=== PATIENT | male | born 1945 | race Hispanic/Latino ===

== ENCOUNTER 2017-05-29 14:47 | Outpatient (CLI) | payer MEDICARE ==
--- NOTE | 2017-05-29 16:19 | XRay Report ---
XRAY BILATERAL KNEE THREE VIEWS EACH: 05/29/17 14:47:00 CLINICAL: Bilateral knee pain. FINDINGS: Right: Moderate osteopenia. No fracture or dislocation. Moderate lateral joint space narrowing with osteophytes. Mild medial joint space narrowing. Patellofemoral joint osteoarthritis with osteophytes. Suspect a small knee joint effusion. Vascular calcifications. Left: Moderate osteopenia. No fracture or dislocation. Moderate medial joint space narrowing with small osteophytes. The lateral joint space is normal with small osteophytes. Patellofemoral joint osteoarthritis with small osteophytes. Suspect a small knee joint effusion.Vascular calcifications. IMPRESSION: Bilateral osteoarthritis with greater involvement of the patellofemoral joint and the lateral joint space on the right and patellofemoral joint and medial joint space on the left.
== END 2017-05-29 14:48 | disposition home or self-care (01) ==
LOC: SPVIMAG 14:47
PROVIDERS: ATTEND Orthopaedic Surgery Sports Medicine
DX: M17.0 Bilateral primary osteoarthritis of knee (principal); M85.861 Other specified disorders of bone density and structure, right lower leg; M85.862 Other specified disorders of bone density and structure, left lower leg; I10 Essential (primary) hypertension; J44.9 Chronic obstructive pulmonary disease, unspecified; E78.00 Pure hypercholesterolemia, unspecified

== ENCOUNTER 2018-11-12 15:33 | Inpatient (IN) | payer MEDICARE ==
[2018-11-12 16:19] LABS: Basophils % (Auto) 0.5 % (0.0-1.8); Eosinophils % (Auto) 0.4 % (0.0-4.3); Hematocrit 24.6 % (35.5-45.6); Hemoglobin 8.3 gm/dl (11.8-15.2); Lymphocytes # (Auto) 0.4 K/mm3 (1.2-5.4); Lymphocytes % (Auto) 6.9 % (13.4-35.0); Mean Corpuscular HGB Conc 34 % (32-34); Mean Corpuscular Volume 100 fl (84-94); Monocytes # (Auto) 0.6 K/mm3 (0.0-0.8); Monocytes % (Auto) 9.4 % (0.0-7.3); Platelet Count 199 K/mm3 (140-440); Red Blood Count 2.46 M/mm3 (3.65-5.03); Red Cell Distribution Width 17.9 % (13.2-15.2)
--- NOTE | 2018-11-12 16:24 | Emergency Department Report ---
ED General Adult HPI - General Chief complaint: Arrhythmia/Palpitations Stated complaint: JULISSA/WEAKNESS Time Seen by Provider: 11/12/18 16:15 Source: patient, family Mode of arrival: Wheelchair Limitations: No Limitations - History of Present Illness Initial comments: Patient is a 73-year-old by the patient's emergency room with complaints of shortness of breath and weakness. Patient states she had a near-syncopal episode today. Patient states he was at his doctor's office and they found him to be in A. fib which is a new rhythm for him. Patient states his symptoms are better with rest and worse with exertion. Sent here for evaluation and admis micky. 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 -: Gradual Consistency: constant Improves with: rest Worsens with: movement Associated Symptoms: malaise, shortness of breath, weakness. denies: confusion, chest pain, cough, diaphoresis, fever/chills, headaches, loss of appetite, nausea/vomiting, rash, seizure, syncope - Related Data Home Medications Medication Instructions Recorded Confirmed Last Taken Ubidecarenone [Coq-10] 200 mg PO DAILY 01/08/15 11/12/18 Unknown ALBUTEROL Inhaler (OR & NICU) 2 puff IH Q6H PRN 11/12/18 11/12/18 Unknown [Proair] Atorvastatin [Lipitor] 80 mg PO QHS 11/12/18 11/12/18 Unknown Gabapentin [Neurontin] 300 mg PO DAILY 11/12/18 11/12/18 Unknown Losartan [Cozaar] 50 mg PO BID 11/12/18 11/12/18 Unknown Multivitamin Tab [Multiple Vitamin 1 each PO DAILY 11/12/18 11/12/18 Unknown TAB (Theragran)] [place]-3 Fatty Acids/Fish Oil [Fish 1,000 mg PO DAILY 11/12/18 11/12/18 Unknown Oil] Tiotropium [Spiriva] 18 mcg IH DAILY 11/12/18 11/12/18 Unknown dilTIAZem CD [Cardizem Cd] 180 mg PO DAILY 11/12/18 11/12/18 Unknown hydroCHLOROthiazide [Hctz] 12.5 mg PO QDAY 11/12/18 11/12/18 Unknown Allergies Allergy/AdvReac Type Severity Reaction Status Date / Time Sulfa (Sulfonamide Allergy Unknown Verified 01/08/15 10:53 Antibiotics) ED Review of Systems ROS: Stated complaint: JULISSA/WEAKNESS Other details as noted in HPI Constitutional: denies: chills, fever Eyes: denies: eye pain, eye discharge, vision change ENT: denies: ear pain, throat pain Respiratory: shortness of breath. denies: cough, wheezing Cardiovascular: denies: chest pain, palpitations Endocrine: no symptoms reported Gastrointestinal: melena. denies: abdominal pain, nausea, diarrhea Genitourinary: denies: urgency, dysuria Musculoskeletal: denies: back pain, joint swelling, arthralgia Skin: denies: rash, lesions Neurological: weakness. denies: headache, paresthesias Psychiatric: denies: anxiety, depression Hematological/Lymphatic: denies: easy bleeding, easy bruising ED Past Medical Hx - Past Medical History Previous Medical History?: Yes Hx Hypertension: Yes Hx CVA: Yes (TIA 2014) Hx GERD: Yes Hx Kidney Stones: Yes Hx Asthma: Yes Hx COPD: Yes Additional medical history: High cholesterol - Surgical History Past Surgical History?: Yes Hx Open Heart Surgery: Yes (4 bypasses) Hx Appendectomy: Yes Additional Surgical History: Hernia repair. XCataract correction - Family History Family history: no significant - Social History Smoking Status: Former Smoker Substance Use Type: Alcohol - Medications Home Medications: Home Medications Medication Instructions Recorded Confirmed Last Taken Type Ubidecarenone [Coq-10] 200 mg PO DAILY 01/08/15 11/12/18 Unknown History ALBUTEROL Inhaler (OR & NICU) 2 puff IH Q6H PRN 11/12/18 11/12/18 Unknown History [Proair] Atorvastatin [Lipitor] 80 mg PO QHS 11/12/18 11/12/18 Unknown History Gabapentin [Neurontin] 300 mg PO DAILY 11/12/18 11/12/18 Unknown History Losartan [Cozaar] 50 mg PO BID 11/12/18 11/12/18 Unknown History Multivitamin Tab [Multiple Vitamin 1 each PO DAILY 11/12/18 11/12/18 Unknown History TAB (Theragran)] [place]-3 Fatty Acids/Fish Oil [Fish 1,000 mg PO DAILY 11/12/18 11/12/18 Unknown History Oil] Tiotropium [Spiriva] 18 mcg IH DAILY 11/12/18 11/12/18 Unknown History dilTIAZem CD [Cardizem Cd] 180 mg PO DAILY 11/12/18 11/12/18 Unknown History hydroCHLOROthiazide [Hctz] 12.5 mg PO QDAY 11/12/18 11/12/18 Unknown History ED Physical Exam - General Limitations: No Limitations General appearance: alert, in no apparent distress - Head Head exam: Present: atraumatic, normocephalic - Eye Eye exam: Present: normal appearance, PERRL Pupils: Present: normal accommodation - ENT ENT exam: Present: mucous membranes moist - Neck Neck exam: Present: normal inspection - Respiratory Respiratory exam: Present: normal lung sounds bilaterally. Absent: respiratory distress - Cardiovascular Cardiovascular Exam: Present: regular rate, irregular rhythm. Absent: systolic murmur, diastolic murmur, rubs, gallop - GI/Abdominal GI/Abdominal exam: Present: soft, normal bowel sounds. Absent: distended, t enderness, guarding - Rectal Rectal exam: Present: deferred - Extremities Exam Extremities exam: Present: normal inspection - Back Exam Back exam: Present: normal inspection - Neurological Exam Neurological exam: Present: alert, oriented X3 - Psychiatric Psychiatric exam: Present: normal affect, normal mood - Skin Skin exam: Present: warm, dry, intact, normal color. Absent: rash ED Course Vital Signs 11/12/18 11/12/18 11/12/18 15:43 15:44 15:46 Temperature 99 F Pulse Rate 123 H 109 H 105 H Respiratory 16 17 14 Rate Blood Pressure 122/65 122/65 122/65 Blood Pressure 122/65 [Right] O2 Sat by Pulse Oximetry 11/12/18 11/12/18 11/12/18 16:00 16:15 16:18 Temperature Pulse Rate 110 H 101 H 109 H Respiratory 21 17 Rate Blood Pressure 122/65 Blood Pressure [Right] O2 Sat by Pulse Oximetry 11/12/18 11/12/18 11/12/18 16:30 16:45 17:00 Temperature Pulse Rate 96 H 107 H 101 H Respiratory 14 24 15 Rate Blood Pressure 117/62 117/62 116/58 Blood Pressure [Right] O2 Sat by Pulse Oximetry 11/12/18 11/12/18 11/12/18 17:15 17:31 17:45 Temperature Pulse Rate 91 H 106 H 88 Respiratory 16 13 12 Rate Blood Pressure 122/68 124/60 124/60 Blood Pressure [Right] O2 Sat by Pulse 96 Oximetry 11/12/18 11/12/18 11/12/18 18:01 18:15 18:30 Temperature Pulse Rate 85 90 80 Respiratory 13 12 13 Rate Blood Pressure 115/63 116/58 136/61 Blood Pressure [Right] O2 Sat by Pulse 95 98 Oximetry 11/12/18 11/12/18 11/12/18 18:45 19:00 19:15 Temperature Pulse Rate 89 83 86 Respiratory 10 L 10 L 11 L Rate Blood Pressure 136/61 126/57 126/57 Blood Pressure [Right] O2 Sat by Pulse 95 96 Oximetry 11/12/18 11/12/18 11/12/18 19:30 19:41 19:51 Temperature Pulse Rate 85 85 91 H Respiratory 10 L 11 L 12 Rate Blood Pressure 131/65 126/57 126/57 Blood Pressure [Right] O2 Sat by Pulse 98 95 Oximetry 11/12/18 11/12/18 11/12/18 20:01 20:11 20:21 Temperature Pulse Rate 89 86 90 Respiratory 12 12 13 Rate Blood Pressure 140/99 140/99 140/99 Blood Pressure [Right] O2 Sat by Pulse Oximetry 11/12/18 11/12/18 11/12/18 20:30 20:41 20:51 Temperature Pulse Rate 89 84 82 Respiratory 11 L 15 17 Rate Blood Pressure 131/62 131/62 131/62 Blood Pressure [Right] O2 Sat by Pulse Oximetry 11/12/18 11/12/18 11/12/18 21:01 21:11 21:21 Temperature Pulse Rate 83 89 75 Respiratory 12 14 12 Rate Blood Pressure 132/65 132/56 114/58 Blood Pressure [Right] O2 Sat by Pulse Oximetry 11/12/18 11/12/18 11/12/18 21:26 21:30 21:41 Temperature 98.3 F Pulse Rate 76 78 Respiratory 12 14 Rate Blood Pressure 132/65 131/60 Blood Pressure [Right] O2 Sat by Pulse 95 94 Oximetry 11/12/18 11/12/18 11/12/18 21:51 22:00 22:09 Temperature Pulse Rate 81 89 86 Respiratory 12 13 Rate Blood Pressure 127/69 130/52 130/52 Blood Pressure [Right] O2 Sat by Pulse Oximetry 11/12/18 11/12/18 11/12/18 22:15 22:30 22:45 Temperature Pulse Rate 82 79 69 Respiratory 13 12 10 L Rate Blood Pressure 130/52 123/54 123/54 Blood Pressure [Right] O2 Sat by Pulse Oximetry 11/12/18 11/12/18 11/12/18 23:01 23:21 23:31 Temperature Pulse Rate 66 118 H 126 H Respiratory 12 21 28 H Rate Blood Pressure 138/63 138/63 138/63 Blood Pressure [Right] O2 Sat by Pulse Oximetry 11/12/18 11/12/18 11/13/18 23:41 23:51 00:01 Temperature Pulse Rate 104 H 101 H 88 Respiratory 22 17 17 Rate Blood Pressure 138/63 138/63 138/63 Blood Pressure [Right] O2 Sat by Pulse Oximetry 11/13/18 11/13/18 00:11 00:21 Temperature Pulse Rate 84 85 Respiratory 11 L 14 Rate Blood Pressure 135/80 138/68 Blood Pressure [Right] O2 Sat by Pulse Oximetry - Reevaluation(s) Reevaluation #1: Initial evaluation done. 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 EKG shows a sinus tach with PVCs. 11/12/18 16:21 Discussed all results with patient. Patient will be admitted to the hospitalist service. Patient agrees to plan of care. 11/12/18 19:57 - Consultations Consultation #1: Cardiology paged 11/12/18 18:20 Discussed case with cardiology and cardiology recommends admission to the hospitalist group and they will see the patient in the morning. 11/12/18 18:42 Consultation #2: GI paged 11/12/18 18:32 Discussed case with LING Lei. Dr. Wallace recommends IV Protonix drip, nothing by mouth after midnight, 1 unit of blood, and admission to the hospital for a scope in the morning 11/12/18 18:56 Consultation #3: Hospitalist consulted for admission. Hospitalist to admit patient. Hospitalist to assume care patient. 11/12/18 19:46 ED Medical Decision Making - Lab Data Result diagrams: 11/12/18 16:00 11/12/18 16:00 - EKG Data -: EKG Interpreted by Me EKG shows normal: sinus rhythm, axis, intervals, QRS complexes, ST-T waves Rate: tachycardia - Radiology Data Radiology results: report reviewed, image reviewed PROCEDURE: XR CHEST 1V AP TECHNIQUE: Chest radiograph single view. HISTORY: sob COMPARISONS: None . FINDINGS: Heart: Normal. Mediastinum/Vessels: Normal. Lungs/Pleural space: Normal. Bony thorax: No acute osseous abnormality. Life support devices: None. Sternotomy wires noted IMPRESSION: No acute cardiopulmonary abnormality. - Medical Decision Making Patient is 73-year-old medications Amerge for shortness of breath and weakness and near-syncope. Patient also complains of melena for 1 week. Patient found to be anemic and new onset A. fib. Cardiology consultation and GI consultation. Recommendation is received from both specialist. Patient admitted to the hospitalist service - Differential Diagnosis melena. GI bleed. new A. fib. sob. Weakness. Critical Care Time: Yes Critical care attestation.: If time is entered above; I have spent that time in minutes in the direct care of this critically ill patient, excluding procedure time. Critical Care Time: 45 minutes ED Disposition Clinical Impression: New onset a-fib, SOB (shortness of breath), Weakness, Near syncope, Melena Anemia Qualifiers: Anemia type: other cause Qualified Code(s): D64.9 - Anemia, unspecified GI bleed Qualifiers: GI bleed type/associated pathology: anorectal hemorrhage Qualified Code(s): K62.5 - Hemorrhage of anus and rectum Disposition: OP ADMIT IP TO THIS HOSP Is pt being admited?: Yes Does the pt Need Aspirin: No Condition: Critical Time of Disposition: 19:55
[2018-11-12 17:13] LABS: Creatine Kinase MB 3.3 ng/mL (0.0-4.0)
[2018-11-12] MEDS ORDERED: DILAUDID IV ONE (17:37)
[2018-11-12] MEDS ORDERED: DILAUDID ONE (17:37)
--- NOTE | 2018-11-12 17:55 | XRay Report ---
PROCEDURE: XR CHEST 1V AP TECHNIQUE: Chest radiograph single view. HISTORY: sob COMPARISONS: None . FINDINGS: Heart: Normal. Mediastinum/Vessels: Normal. Lungs/Pleural space: Normal. Bony thorax: No acute osseous abnormality. Life support devices: None. Sternotomy wires noted IMPRESSION: No acute cardiopulmonary abnormality. This document is electronically signed by Eliseo Trinh MD., November 12 2018 05:53:53 PM ET
[2018-11-12] MEDS ORDERED: NACL 0.9% 500 ML 500 ML IV ONE (18:57)
--- NOTE | 2018-11-12 19:33 | History and Physical Report ---
History of Present Illness Chief complaint: My stool is real dark, and i just dont feel good at all. History of present illness: 73 YO Male with HTN, CVA, GERD, Asthma, Nephrolithiasis, COPD, HLD, CAD S/P CABG presents to ED for evaluation. Pt states that he has experienced generalized weakness over the past week with worsening symptoms over the same time frame. Pt also reports feeling as though he was going to "pass out". Pt also reports dark tarry stools daily over the past 1 week. Pt presents to a new PCP and was found to have new onset Atrial Fib. Pt reports that he has never been informed of having Atrial Fib. Pt transported to [facility] via private vehicle. Pt seen and evaluated in ED and found to have Atrial Fib as well as concomitant GI Bleed complicated by symptomatic blood loss anemia. Pt admitted to [facility] and initiated on GI bleed protocol, and treated with PRBC transfusion. Cardiology consulted in ED. Pt denies fever, chills, CP, Palpitations, NVD, Trauma, prolonged travel/immobility, individual/family history of DVT/PE/Bleeding/Blood Clotting Disorders, skin rash, hemoptysis, or known ill contacts. Prior admission on 01/08/15 reviewed. All listed medication reconciled at time of admission. Past History Past Medical History: CAD, COPD, GERD, hypertension, hyperlipidemia, stroke Past Surgical History: appendectomy, CABG, cataract removal, hernia repair Social history: , lives with family. denies: smoking, alcohol abuse, prescription drug abuse Family history: CAD, hypertension Medications and Allergies Allergies Allergy/AdvReac Type Severity Reaction Status Date / Time Sulfa (Sulfonamide Allergy Unknown Verified 01/08/15 10:53 Antibiotics) Home Medications Medication Instructions Recorded Confirmed Last Taken Type Ubidecarenone [Coq-10] 200 mg PO DAILY 01/08/15 11/12/18 Unknown History ALBUTEROL Inhaler (OR & NICU) 2 puff IH Q6H PRN 11/12/18 11/12/18 Unknown Histor y [Proair] Atorvastatin [Lipitor] 80 mg PO QHS 11/12/18 11/12/18 Unknown History Gabapentin [Neurontin] 300 mg PO DAILY 11/12/18 11/12/18 Unknown History Losartan [Cozaar] 50 mg PO BID 11/12/18 11/12/18 Unknown History Multivitamin Tab [Multiple Vitamin 1 each PO DAILY 11/12/18 11/12/18 Unknown History TAB (Theragran)] [place]-3 Fatty Acids/Fish Oil [Fish 1,000 mg PO DAILY 11/12/18 11/12/18 Unknown History Oil] Tiotropium [Spiriva] 18 mcg IH DAILY 11/12/18 11/12/18 Unknown History dilTIAZem CD [Cardizem Cd] 180 mg PO DAILY 11/12/18 11/12/18 Unknown History hydroCHLOROthiazide [Hctz] 12.5 mg PO QDAY 11/12/18 11/12/18 Unknown History Active Meds: Active Medications Pantoprazole Sodium 80 mg/ (Sodium Chloride) 100 mls @ 10 mls/hr IV DIRECT SHEA Review of Systems Constitutional: weakness, no weight loss, no weight gain, no fever, no chills Ears, nose, mouth and throat: no ear pain, no ear discharge, no tinnitis, no decreased hearing, no nose pain Cardiovascular: no orthopnea, no palpitations, no edema, no syncope Respiratory: no cough, no cough with sputum, no hemoptysis, no shortness of breath, no dyspnea on exertion Gastrointestinal: melena, no nausea, no vomiting, no constipation, no change in bowel habits, no hematemesis, no early satiety Genitourinary Male: no hematuria, no flank pain, no discharge, no urinary frequency, no urinary hesitancy Rectal: no pain, no incontinence Musculoskeletal: no neck pain, no shooting arm pain, no arm numbness/tingling, no low back pain, no shooting leg pain Neurological: no paralysis, no weakness, no numbness, no tingling, no seizures Psychiatric: no anxiety, no memory loss, no change in sleep habits, no sleep disturbances, no hypersomnia, no suicidal ideation, no disorientation, no hallucinations Endocrine: no cold intolerance, no heat intolerance, no polyphagia, no excessive thirst, no polydipsia, no polyuria, no nocturia Hematologic/Lymphatic: no easy bruising, no easy bleeding, no lymphadenopathy Allergic/Immunologic: no urticaria, no allergic rhinitis, no wheezing, no persistent infections Exam - Constitutional Vitals: Temp Pulse Resp BP Pulse Ox 99 F 86 11 L 126/57 96 11/12/18 15:44 11/12/18 19:15 11/12/18 19:15 11/12/18 19:15 11/12/18 19:00 General appearance: Present: mild distress - EENT Eyes: Present: PERRL (conjunctival pallor) ENT: hearing intact, clear oral mucosa - Neck Neck: Present: supple, normal ROM - Respiratory Respiratory effort: normal Respiratory: bilateral: CTA - Cardiovascular Rhythm: irregularly irregular Heart Sounds: Present: S1 & S2. Absent: rub, click - Extremities Extremities: pulses symmetrical, No edema Peripheral Pulses: within normal limits - Abdominal General gastrointestinal: Present: soft, non-tender, non-distended, normal bowel sounds Male genitourinary: Present: normal - Integumentary Integumentary: Present: clear, warm, dry - Musculoskeletal Musculoskeletal: gait normal, strength equal bilaterally - Psychiatric Psychiatric: appropriate mood/affect, intact judgment & insight - Neurologic Neurologic: CNII-XII intact, moves all extremities Results - Labs CBC & Chem 7: 11/12/18 16:00 11/12/18 16:00 Labs: Abnormal lab results 11/12/18 11/12/18 Range/Units 16:00 16:00 RBC 2.46 L (3.65-5.03) M/mm3 Hgb 8.3 L (11.8-15.2) gm/dl Hct 24.6 L (35.5-45.6) % MCV 100 H (84-94) fl MCH 34 H (28-32) pg RDW 17.9 H (13.2-15.2) % Lymph % (Auto) 6.9 L (13.4-35.0) % [place] % (Auto) 9.4 H (0.0-7.3) % Lymph # 0.4 L (1.2-5.4) K/mm3 Seg Neutrophils % 82.8 H (40.0-70.0) % Sodium 134 L (137-145) mmol/L Chloride 97.3 L (98-107) mmol/L BUN 22 H (9-20) mg/dL Glucose 129 H (75-100) mg/dL Assessment and Plan - Patient Problems (1) GI bleed Current Visit: Yes Status: Acute Qualifiers: GI bleed type/associated pathology: anorectal hemorrhage Qualified Code(s): K62.5 - Hemorrhage of anus and rectum Plan to address problem: GI consulted in ED, IV ppi therapy, serial cbc, PRBC transfusion. (2) New onset a-fib Current Visit: Yes Status: Acute Plan to address problem: Rate currently controlled, Continue cardizem, telemetry monitoring, cardiology consulted, hold anticoagulation at this time secondary to GI bleed, (3) CVA (cerebral vascular accident) Current Visit: Yes Status: Chronic Plan to address problem: Present On Admission. (4) COPD (chronic obstructive pulmonary disease) Current Visit: Yes Status: Chronic Plan to address problem: Present on Admission., supplemental oxygen, nebulizer therapy, supportive care. (5) Asthma Current Visit: Yes Status: Acute Qualifiers: Asthma severity: mild Asthma persistence: intermittent Plan to address problem: Nebulizer therapy, supportive care, avoid asthma triggers (6) HLD (hyperlipidemia) Current Visit: Yes Status: Acute Qualifiers: Hyperlipidemia type: mixed hyperlipidemia Qualified Code(s): E78.2 - Mixed hyperlipidemia Plan to address problem: statin therapy, low cholesterol diet, (7) CAD (coronary artery disease) Current Visit: Yes Status: Chronic Qualifiers: Associated angina: without angina Plan to address problem: risk factor reduction therapy, low cholesterol diet, statin therapy, (8) Anemia Current Visit: Yes Status: Acute Qualifiers: Anemia type: other cause Qualified Code(s): D64.9 - Anemia, unspecified Plan to address problem: Symptomatic Anemia: Secondary to Blood loss: PRBC transfusion, CBC, repeat CBC in AM. (9) HTN (hypertension) Current Visit: No Status: Chronic Qualifiers: Hypertension type: essential hypertension Qualified Code(s): I10 - Essential (primary) hypertension Plan to address problem: Monitor BP q shift, continue current therapy. (10) DVT prophylaxis Current Visit: No Status: Acute Plan to address problem: SCD to BLE while in bed.
[2018-11-12] MEDS ORDERED: SODIUM CHLORIDE FLUSH SYRINGE 10 ML IV PRN (19:35)
[2018-11-12] MEDS ORDERED: PROVENTIL IH PRN ×2 (19:35→20:56)
[2018-11-12] MEDS ORDERED: TYLENOL PO PRN (19:35)
[2018-11-12] MEDS ORDERED: ZOFRAN IV PRN (19:35)
[2018-11-12] MEDS: PROTONIX 80 MG in NACL 0.9% 100 ML IV SCH (19:43)
[2018-11-12] MEDS ORDERED: PROAIR IH PRN (20:31)
[2018-11-12] MEDS ORDERED: NACL 0.9% 500 ML 500 ML ONE (21:01)
[2018-11-12 21:30] LABS: INR 3.11 (0.87-1.13)
[2018-11-12] MEDS: COZAAR PO SCH (22:09)
[2018-11-12] MEDS ORDERED: COZAAR ONE (22:10)
[2018-11-12] MEDS: SODIUM CHLORIDE FLUSH SYRINGE 10 ML IV SCH (22:10)
[2018-11-13 05:23] LABS: Basophils % (Auto) 0.3 % (0.0-1.8); Eosinophils # (Auto) 0.1 K/mm3 (0.0-0.4); Eosinophils % (Auto) 1.3 % (0.0-4.3); Hematocrit 27.1 % (35.5-45.6); Hemoglobin 9.3 gm/dl (11.8-15.2); Lymphocytes # (Auto) 0.5 K/mm3 (1.2-5.4); Lymphocytes % (Auto) 8.3 % (13.4-35.0); Mean Corpuscular HGB Conc 34 % (32-34); Mean Corpuscular Volume 99 fl (84-94); Monocytes # (Auto) 0.7 K/mm3 (0.0-0.8); Monocytes % (Auto) 12.2 % (0.0-7.3); Platelet Count 182 K/mm3 (140-440); Red Blood Count 2.74 M/mm3 (3.65-5.03); Red Cell Distribution Width 17.7 % (13.2-15.2)
[2018-11-13 05:35] LABS: Alanine Aminotransferase 27 units/L (7-56); Albumin 3.3 g/dL (3.9-5); BUN/Creatinine Ratio 20; Blood Urea Nitrogen 20 mg/dL (9-20); Calcium 8.9 mg/dL (8.4-10.2); Hemolysis Index 12
[2018-11-13] MEDS ORDERED: UBIDECARENONE 200 MG PO SCH (10:00)
[2018-11-13] MEDS: SODIUM CHLORIDE FLUSH SYRINGE 10 ML IV SCH ×2 (10:00→22:06)
[2018-11-13] MEDS: CARDIZEM CD PO SCH ×2 (10:00→17:16)
[2018-11-13 10:12] LABS: INR 2.46 (0.87-1.13)
--- NOTE | 2018-11-13 10:35 | Progress Note ---
Assessment and Plan Assessment and plan: 73 YO Male with HTN, CVA, GERD, Asthma, Nephrolithiasis, COPD, HLD, CAD S/P CABG presents to ED for evaluation. Pt states that he has experienced generalized weakness over the past week with worsening symptoms over the same time frame. Pt also reports feeling as though he was going to "pass out". Pt also reports dark tarry stools daily over the past 1 week. Pt presents to a new PCP and was found to have new onset Atrial Fib. Pt reports that he has never been informed of having Atrial Fib. Pt denies fever, chills, CP, Palpitations, NVD, Trauma, prolonged travel/immobility, individual/family history of DVT/PE/Bleeding/Blood Clotting Disorders, skin rash, hemoptysis, or known ill contacts * Pt seen and evaluated in ED and found to have Atrial Fib as well as concomitant GI Bleed complicated by symptomatic blood loss anemia. * Pt admitted to [facility] and initiated on GI bleed protocol, and treated with PRBC transfusion. * Cardiology consulted in ED. . Prior admission on 01/08/15 reviewed. All listed medication reconciled at time of admission. (1) GI bleed Current Visit: Yes Status: Acute Qualifiers: GI bleed type/associated pathology: anorectal hemorrhage Qualified Code(s): K62.5 - Hemorrhage of anus and rectum Plan to address problem: GI consulted in ED plan for [place] in am, IV ppi therapy, serial cbc, PRBC transfusion. (2) New onset a-fib Current Visit: Yes Status: Acute Plan to address problem: Rate currently controlled, Continue cardizem, telemetry monitoring, cardiology consulted, hold anticoagulation at this time secondary to GI bleed, (3) CVA (cerebral vascular accident) Current Visit: Yes Status: Chronic Plan to address problem: Present On Admission. (4) COPD (chronic obstructive pulmonary disease) Current Visit: Yes Status: Chronic Plan to address problem: Present on Admission., supplemental oxygen, nebulizer therapy, supportive care. (5) Asthma Current Visit: Yes Status: Acute Qualifiers: Asthma severity: mild Asthma persistence: intermittent Plan to address problem: Nebulizer therapy, supportive care, avoid asthma triggers (6) HLD (hyperlipidemia) Current Visit: Yes Status: Acute Qualifiers: Hyperlipidemia type: mixed hyperlipidemia Qualified Code(s): E78.2 - Mixed hyperlipidemia Plan to address problem: statin therapy, low cholesterol diet, (7) CAD (coronary artery disease) Current Visit: Yes Status: Chronic Qualifiers: Associated angina: without angina Plan to address problem: risk factor reduction therapy, low cholesterol diet, statin therapy, (8) Anemia Current Visit: Yes Status: Acute Qualifiers: Anemia type: other cause Qualified Code(s): D64.9 - Anemia, unspecified Plan to address problem: Symptomatic Anemia: Secondary to Blood loss: PRBC transfusion, CBC, repeat CBC in AM. (9) HTN (hypertension) Current Visit: No Status: Chronic Qualifiers: Hypertension type: essential hypertension Qualified Code(s): I10 - Essential (primary) hypertension Plan to address problem: Monitor BP q shift, continue current therapy. (10) DVT prophylaxis Current Visit: No Status: Acute Plan to address problem: SCD to BLE while in bed. History Interval history: Patient seen and examined, resting comfortably. No new complaints Hospitalist Physical - Constitutional Vitals: Temp Pulse Resp BP Pulse Ox 98.4 F 91 H 12 128/68 95 11/13/18 03:26 11/13/18 10:00 11/13/18 05:01 11/13/18 05:01 11/13/18 10:00 General appearance: Present: mild distress, well-nourished - EENT Eyes: Present: PERRL, EOM intact ENT: hearing intact, clear oral mucosa - Neck Neck: Present: supple, normal ROM - Respiratory Respiratory: bilateral: CTA - Cardiovascular Rhythm: irregularly irregular Heart Sounds: Present: S1 & S2. Absent: systolic murmur - Extremities Extremities: no ischemia, pulses intact, pulses symmetrical, No edema, normal temperature, normal color, Full ROM Peripheral Pulses: within normal limits - Abdominal General gastrointestinal: deferred, non-tender, non-distended, normal bowel jacinto nds - Integumentary Integumentary: Present: clear, warm, dry - Psychiatric Psychiatric: appropriate mood/affect, intact judgment & insight, memory intact, cooperative - Neurologic Neurologic: CNII-XII intact, moves all extremities - Allied Health Allied health notes reviewed: nursing Results - Labs CBC & Chem 7: 11/14/18 04:40 11/13/18 05:03 Labs: Laboratory Last Values WBC 5.8 K/mm3 (4.5-11.0) 11/13/18 05:03 RBC 2.74 M/mm3 (3.65-5.03) L 11/13/18 05:03 Hgb 9.3 gm/dl (11.8-15.2) L 11/13/18 05:03 Hct 27.1 % (35.5-45.6) L 11/13/18 05:03 MCV 99 fl (84-94) H 11/13/18 05:03 MCH 34 pg (28-32) H 11/13/18 05:03 MCHC 34 % (32-34) 11/13/18 05:03 RDW 17.7 % (13.2-15.2) H 11/13/18 05:03 Plt Count 182 K/mm3 (140-440) 11/13/18 05:03 Lymph % (Auto) 8.3 % (13.4-35.0) L 11/13/18 05:03 [place] % (Auto) 12.2 % (0.0-7.3) H 11/13/18 05:03 Eos % (Auto) 1.3 % (0.0-4.3) 11/13/18 05:03 Baso % (Auto) 0.3 % (0.0-1.8) 11/13/18 05:03 Lymph # 0.5 K/mm3 (1.2-5.4) L 11/13/18 05:03 [place] # 0.7 K/mm3 (0.0-0.8) 11/13/18 05:03 Eos # 0.1 K/mm3 (0.0-0.4) 11/13/18 05:03 Baso # 0.0 K/mm3 (0.0-0.1) 11/13/18 05:03 Seg Neutrophils % 77.9 % (40.0-70.0) H 11/13/18 05:03 Seg Neutrophils # 4.5 K/mm3 (1.8-7.7) 11/13/18 05:03 PT 26.2 Sec. (12.2-14.9) H 11/13/18 09:30 INR 2.46 (0.87-1.13) H 11/13/18 09:30 Sodium 135 mmol/L (137-145) L 11/13/18 05:03 Potassium 4.1 mmol/L (3.6-5.0) 11/13/18 05:03 Chloride 98.9 mmol/L (98-107) 11/13/18 05:03 Carbon Dioxide 25 mmol/L (22-30) 11/13/18 05:03 15 mmol/L 11/13/18 05:03 BUN 20 mg/dL (9-20) 11/13/18 05:03 1.0 mg/dL (0.8-1.5) 11/13/18 05:03 Estimated GFR > 60 ml/min 11/13/18 05:03 20 % 11/13/18 05:03 Glucose 121 mg/dL (75-100) H 11/13/18 05:03 Calcium 8.9 mg/dL (8.4-10.2) 11/13/18 05:03 1.30 mg/dL (0.1-1.2) H 11/13/18 05:03 AST 35 units/L (5-40) 11/13/18 05:03 ALT 27 units/L (7-56) 11/13/18 05:03 64 units/L (35-129) 11/13/18 05:03 86 units/L (55-170) 11/12/18 Unknown CK-MB (CK-2) 3.3 ng/mL (0.0-4.0) 11/12/18 Unknown CK-MB (CK-2) Rel Index 3.8 (0-4) 11/12/18 Unknown < 0.010 ng/mL (0.00-0.029) 11/12/18 Unknown NT-Pro-B Natriuret Pep 143.0 pg/mL (0-900) 11/12/18 Unknown 5.3 g/dL (6.3-8.2) L 11/13/18 05:03 3.3 g/dL (3.9-5) L 11/13/18 05:03 1.7 % 11/13/18 05:03 Blood Type A POSITIVE 11/12/18 19:10 Antibody Screen Negative 11/12/18 19:10 Crossmatch See Detail 11/12/18 19:10 Active Medications - Current Medications Current Medications: Generic Name Dose Route Start Last Admin Trade Name Yi PRN Reason Stop Dose Admin Acetaminophen 650 mg 11/12/18 19:35 Tylenol PO Q4H PRN Pain MILD(1-3)/Fever >100.5/URBINA Albuterol 2.5 mg 11/12/18 20:56 Proventil IH Q6HRT PRN Shortness Of Breath Atorvastatin Calcium 80 mg 11/12/18 22:00 11/12/18 22:10 Lipitor PO 80 mg QHS SHEA Administration Diltiazem HCl 180 mg 11/13/18 10:00 Cardizem Cd PO DAILY SHEA Fish Oil 1,000 mg 11/13/18 10:00 Fish Oil PO DAILY SHEA Gabapentin 300 mg 11/13/18 10:00 Neurontin PO DAILY [facility] Hydrochlorothiazide 12.5 mg 11/13/18 10:00 Hctz PO QDAY SHEA Pantoprazole Sodium 80 mg/ 100 mls @ 10 mls/hr 11/12/18 19:30 11/12/18 19:43 Sodium Chloride IV 8 mg/hr DIRECT SHEA 10 mls/hr Administration 8 MG/HR Losartan Potassium 50 mg 11/12/18 22:00 11/12/18 22:09 Cozaar PO 50 mg BID SHEA Administration Multivitamins 1 each 11/13/18 10:00 Theragran Tab PO DAILY [facility] Ondansetron HCl 4 mg 11/12/18 19:35 Zofran IV Q8H PRN Nausea And Vomiting Sodium Chloride 10 ml 11/12/18 22:00 11/12/18 22:10 Sodium Chloride Flush Syringe 10 Ml IV 10 ml BID SHEA Administration Sodium Chloride 10 ml 11/12/18 19:35 Sodium Chloride Flush Syringe 10 Ml IV PRN PRN LINE FLUSH Tiotropium [place] 1 puff 11/13/18 10:00 Spiriva IH DAILY SHEA
--- NOTE | 2018-11-13 11:09 | Consultation ---
History of Present Illness Consult date: 11/13/18 Requesting physician: JEF BELCHER III Consult reason: atrial fibrillation History of present illness: The pt is a 73 YO male with a past medical history of CAD s/p CABG in 2008, CVA, COPD, HTN, HLP. He is followed in our office by Dr. Patterson. He presented to his PCP's office yesterday with c/o generalized weakness and black, tarry stools for the past 1 weeks. An ECG obtained in PCP's office showed AFib/AFlutter and thus pt was referred to ED for further eval/management. Pt denies any prior formal diagnosis of AFib or AFlutter, however, he states that he has had intermittent palpitations for years and has suspected that he had paroxysmal AFib for quite some time. Of note, pt was initiated on Coumadin in 2014 after suffering recurrent CVAs. BROOKE at that time revealed multiple calcified atherosclerotic plaque in the aortic root and descending aorta likely the source of recurrent/bilateral strokes per neurology. His INR on admission was 3.11, H/H 8.3/24.6. On evaluation, pt is noted to be in mostly SR with freq PACs with brief paroxysms of AFib CVR. Echo done 02/2018 showed EF 40-45%, LA mildly dilated, mild MR, mild TR. Card PET done 09/2016 was negative for ischemia, EF 52% at rest and 55% with s tress. Past History Past Medical History: CAD, COPD, GERD, hypertension, hyperlipidemia, stroke Past Surgical History: appendectomy, CABG, cataract removal, hernia repair Social history: , lives with family. denies: smoking, alcohol abuse, prescription drug abuse Family history: CAD, hypertension Medications and Allergies Allergies Allergy/AdvReac Type Severity Reaction Status Date / Time Sulfa (Sulfonamide Allergy Unknown Verified 01/08/15 10:53 Antibiotics) Home Medications Medication Instructions Recorded Confirmed Last Taken Type Ubidecarenone [Coq-10] 200 mg PO DAILY 01/08/15 11/12/18 Unknown History ALBUTEROL Inhaler (OR & NICU) 2 puff IH Q6H PRN 11/12/18 11/12/18 Unknown History [Proair] Atorvastatin [Lipitor] 80 mg PO QHS 11/12/18 11/12/18 Unknown History Gabapentin [Neurontin] 300 mg PO DAILY 11/12/18 11/12/18 Unknown History Losartan [Cozaar] 50 mg PO BID 11/12/18 11/12/18 Unknown History Multivitamin Tab [Multiple Vitamin 1 each PO DAILY 11/12/18 11/12/18 Unknown History TAB (Theragran)] [place]-3 Fatty Acids/Fish Oil [Fish 1,000 mg PO DAILY 11/12/18 11/12/18 Unknown History Oil] Tiotropium [Spiriva] 18 mcg IH DAILY 11/12/18 11/12/18 Unknown History dilTIAZem CD [Cardizem Cd] 180 mg PO DAILY 11/12/18 11/12/18 Unknown History hydroCHLOROthiazide [Hctz] 12.5 mg PO QDAY 11/12/18 11/12/18 Unknown History Active Meds: Active Medications Acetaminophen (Tylenol) 650 mg PO Q4H PRN PRN Reason: Pain MILD(1-3)/Fever >100.5/URBINA Albuterol (Proventil) 2.5 mg IH Q6HRT PRN PRN Reason: Shortness Of Breath Atorvastatin Calcium (Lipitor) 80 mg PO QHS [facility] Last Admin: 11/12/18 22:10 Dose: 80 mg Documented by: Diltiazem HCl (Cardizem Cd) 180 mg PO DAILY [facility] Fish Oil (Fish Oil) 1,000 mg PO DAILY [facility] Gabapentin (Neurontin) 300 mg PO DAILY [facility] Hydrochlorothiazide (Hctz) 12.5 mg PO QDAY [facility] Pantoprazole Sodium 80 mg/ (Sodium Chloride) 100 mls @ 10 mls/hr IV DIRECT [facility] Last Admin: 11/12/18 19:43 Dose: 8 mg/hr, 10 mls/hr Documented by: Losartan Potassium (Cozaar) 50 mg PO BID [facility] Last Admin: 11/12/18 22:09 Dose: 50 mg Documented by: Multivitamins (Theragran Tab) 1 each PO DAILY [facility] Ondansetron HCl (Zofran) 4 mg IV Q8H PRN PRN Reason: Nausea And Vomiting Sodium Chloride (Sodium Chloride Flush Syringe 10 Ml) 10 ml IV BID [facility] Last Admin: 11/12/18 22:10 Dose: 10 ml Documented by: Sodium Chloride (Sodium Chloride Flush Syringe 10 Ml) 10 ml IV PRN PRN PRN Reason: LINE FLUSH Tiotropium [place] (Spiriva) 1 puff IH DAILY [facility] Review of Systems Constitutional: weakness (generalized), no weight loss, no weight gain, no feve r, no chills, no sweats Ears, nose, mouth and throat: no ear pain, no nose pain, no sinus pressure, no sinus pain Cardiovascular: palpitations, shortness of breath (chronic), dyspnea on exertion (chronic), no chest pain, no orthopnea, no edema, no syncope, no lightheadedness, no leg edema Respiratory: shortness of breath (chronic), dyspnea on exertion (chronic), no cough, no congestion, no wheezing, no pain on inspiration Gastrointestinal: melena, no abdominal pain, no nausea, no vomiting, no co nstipation, no hematemesis, no coffee ground emesis, no BRBPR Genitourinary Male: no dysuria, no hematuria, no flank pain, no discharge, no urinary frequency, no urinary hesitancy Musculoskeletal: no neck stiffness, no neck pain, no shooting arm pain, no arm numbness/tingling, no low back pain, no shooting leg pain Integumentary: no rash, no pruritis, no redness, no sores, no wounds Neurological: weakness (generalized), no head injury, no paralysis, no parathesias, no numbness, no tingling, no seizures, no syncope Psychiatric: no anxiety Endocrine: no cold intolerance, no heat intolerance Hematologic/Lymphatic: no easy bruising, no easy bleeding Allergic/Immunologic: no urticaria Physical Examination Vital Signs Pulse Resp BP 123 H 16 122/65 11/12/18 15:43 11/12/18 15:43 11/12/18 15:43 General appearance: no acute distress HEENT: Positive: PERRL, Normocephaly, Mucus Membranes Moist Neck: Positive: neck supple, trachea midline Cardiac: Positive: irregularly irregular, S1/S2 Lungs: Positive: Decreased Breath Sounds Neuro: Positive: Grossly Intact Abdomen: Positive: Soft. Negative: Tender Skin: Negative: Rash, Wound Musculoskeletal: No Pain Extremities: Absent: edema Results 11/13/18 05:03 11/13/18 05:03 Cardiac Enzymes 11/12/18 11/13/18 Range/Units Unknown 05:03 AST 35 (5-40) units/L CK-MB (CK-2) 3.3 (0.0-4.0) ng/mL Coagulation 11/12/18 11/13/18 Range/Units 20:48 09:30 PT 31.5 H 26.2 H (12.2-14.9) Sec. INR 3.11 H 2.46 H (0.87-1.13) CBC 11/12/18 11/13/18 Range/Units 16:00 05:03 WBC 5.9 5.8 (4.5-11.0) K/mm3 RBC 2.46 L 2.74 L (3.65-5.03) M/mm3 Hgb 8.3 L 9.3 L (11.8-15.2) gm/dl Hct 24.6 L 27.1 L (35.5-45.6) % Plt Count 199 182 (140-440) K/mm3 Lymph # 0.4 L 0.5 L (1.2-5.4) K/mm3 [place] # 0.6 0.7 (0.0-0.8) K/mm3 Eos # 0.0 0.1 (0.0-0.4) K/mm3 Baso # 0.0 0.0 (0.0-0.1) K/mm3 Comprehensive Metabolic Panel 11/12/18 11/13/18 Range/Units 16:00 05:03 Sodium 134 L 135 L (137-145) mmol/L Potassium 3.9 4.1 (3.6-5.0) mmol/L Chloride 97.3 L 98.9 (98-107) mmol/L Carbon Dioxide 22 25 (22-30) mmol/L BUN 22 H 20 (9-20) mg/dL Creatinine 1.2 1.0 (0.8-1.5) mg/dL Glucose 129 H 121 H (75-100) mg/dL Calcium 9.0 8.9 (8.4-10.2) mg/dL AST 35 (5-40) units/L ALT 27 (7-56) units/L Alkaline Phosphatase 64 (35-129) units/L Total Protein 5.3 L (6.3-8.2) g/dL Albumin 3.3 L (3.9-5) g/dL - Imaging and Cardiology Echo: report reviewed (02/2018 showed EF 40-45%, LA mildly dilated, mild MR, mild TR. ) EKG: report reviewed, image reviewed EKG interpretations - Telemetry EKG Rhythm: Atrial Fibrillation - EKG Sinus rhythms and dysrhythmias: sinus rhythm Assessment and Plan Pt presented with symptomatic anemia, GI bleed, anticoagulated with coumadin (INR 3.11), newly diagnosed parox AFib with CVR. Currently stable cardiac status. Agree with present cardiac regimen - pt's home regimen, including Cardizem, has been resumed. Cont to hold coumadin in setting of anemia and GI bleed and await GI w/u. Per GI team, pt for endoscopy as soon as INR is acceptable. There are no immediate cardiac contraindications to proceeding with endoscopy at this time. The patient has been seen in conjunction with Dr. Yuan who agrees with the assessment and plan of care. - Patient Problems (1) Paroxysmal atrial fibrillation Current Visit: Yes Status: Acute (2) Symptomatic anemia Current Visit: Yes Status: Acute (3) GI bleed Current Visit: Yes Status: Acute Qualifiers: GI bleed type/associated pathology: anorectal hemorrhage Qualified Code(s): K62.5 - Hemorrhage of anus and rectum (4) CAD (coronary artery disease) Current Visit: Yes Status: Chronic Qualifiers: Coronary Disease-Associated Artery/Lesion type: coronary artery bypass graft, autologous artery (5) Hx of CABG Current Visit: Yes Status: Chronic (6) History of CVA (cerebrovascular accident) Current Visit: Yes Status: Chronic (7) HTN (hypertension) Current Visit: Yes Status: Chronic Qualifiers: Hypertension type: essential hypertension Qualified Code(s): I10 - Essential (primary) hypertension (8) HLD (hyperlipidemia) Current Visit: Yes Status: Chronic Qualifiers: Hyperlipidemia type: mixed hyperlipidemia Qualified Code(s): E78.2 - Mixed hyperlipidemia (9) COPD (chronic obstructive pulmonary disease) Current Visit: Yes Status: Chronic
--- NOTE | 2018-11-13 11:14 | Gastroenterology Consultation ---
History of Present Illness - Reason for Consult Consult date: 11/13/18 GI bleed, melena Requesting physician: JEF BELCHER III - History of Present Illness Patient is a 73 y/o male with PMH of HTN, CVA, GERD, asthma, nephrolithiasis, COPD, HLD, CAD (s/p CABG 2008), and Afib who was sent to ED from instructional technology specialist office for further evaluation of generalized weakness, Afib/flutter seen on EKG, and black stools to which GI has been consulted. Cardiology following. This morning patient was resting on stretcher w/o acute distress. He reports black stool x ~1 week with last episode yesterday. No hematemesis or hematochezia. Denies fever, CP, SOB, abdominal pain, N/V, diarrhea, or constipation. Takes a daily ASA at home, along with coumadin. No recent use of Pepto Bismol. Not taking an iron supplement. No hx of PUD or previous EGD. Admits to drinking a couple of alcoholic drinks every evening, but has no known hx of liver disease. Past History Past Medical History: other (as per HPI) Past Surgical History: appendectomy, CABG, cataract removal, hernia repair Social history: , lives with family, other (alcohol). denies: smoking, prescription drug abuse Family history: CAD, hypertension Medications and Allergies Allergies Allergy/AdvReac Type Severity Reaction Status Date / Time Sulfa (Sulfonamide Allergy Unknown Verified 01/08/15 10:53 Antibiotics) Home Medications Medication Instructions Recorded Confirmed Last Taken Type Ubidecarenone [Coq-10] 200 mg PO DAILY 01/08/15 11/12/18 Unknown History ALBUTEROL Inhaler (OR & NICU) 2 puff IH Q6H PRN 11/12/18 11/12/18 Unknown History [Proair] Atorvastatin [Lipitor] 80 mg PO QHS 11/12/18 11/12/18 Unknown History Gabapentin [Neurontin] 300 mg PO DAILY 11/12/18 11/12/18 Unknown History Losartan [Cozaar] 50 mg PO BID 11/12/18 11/12/18 Unknown History Multivitamin Tab [Multiple Vitamin 1 each PO DAILY 11/12/18 11/12/18 Unknown History TAB (Theragran)] [place]-3 Fatty Acids/Fish Oil [Fish 1,000 mg PO DAILY 11/12/18 11/12/18 Unknown History Oil] Tiotropium [Spiriva] 18 mcg IH DAILY 11/12/18 11/12/18 Unknown History dilTIAZem CD [Cardizem Cd] 180 mg PO DAILY 11/12/18 11/12/18 Unknown History hydroCHLOROthiazide [Hctz] 12.5 mg PO QDAY 11/12/18 11/12/18 Unknown History Active Meds: Active Medications Acetaminophen (Tylenol) 650 mg PO Q4H PRN PRN Reason: Pain MILD(1-3)/Fever >100.5/URBINA Albuterol (Proventil) 2.5 mg IH Q6HRT PRN PRN Reason: Shortness Of Breath Atorvastatin Calcium (Lipitor) 80 mg PO QHS [facility] Last Admin: 11/12/18 22:10 Dose: 80 mg Documented by: Diltiazem HCl (Cardizem Cd) 180 mg PO DAILY [facility] Fish Oil (Fish Oil) 1,000 mg PO DAILY [facility] Gabapentin (Neurontin) 300 mg PO DAILY [facility] Hydrochlorothiazide (Hctz) 12.5 mg PO QDAY [facility] Pantoprazole Sodium 80 mg/ (Sodium Chloride) 100 mls @ 10 mls/hr IV DIRECT [facility] Last Admin: 11/12/18 19:43 Dose: 8 mg/hr, 10 mls/hr Documented by: Losartan Potassium (Cozaar) 50 mg PO BID [facility] Last Admin: 11/12/18 22:09 Dose: 50 mg Documented by: Multivitamins (Theragran Tab) 1 each PO DAILY [facility] Ondansetron HCl (Zofran) 4 mg IV Q8H PRN PRN Reason: Nausea And Vomiting Sodium Chloride (Sodium Chloride Flush Syringe 10 Ml) 10 ml IV BID [facility] Last Admin: 11/12/18 22:10 Dose: 10 ml Documented by: Sodium Chloride (Sodium Chloride Flush Syringe 10 Ml) 10 ml IV PRN PRN PRN Reason: LINE FLUSH Tiotropium [place] (Spiriva) 1 puff IH DAILY [facility] medications reviewed/updated as required Review of Systems - Review of Systems All systems: negative Constitutional: weakness Gastrointestinal: melena Exam - Constitutional Vital Signs: Temp Pulse Resp BP Pulse Ox 98.4 F 91 H 12 128/68 95 11/13/18 03:26 11/13/18 10:00 11/13/18 05:01 11/13/18 05:01 11/13/18 10:00 General appearance: no acute distress - EENT Eyes: PERRL, EOM intact ENT: hearing intact - Respiratory Respiratory effort: normal - Cardiovascular Rhythm: regular - Gastrointestinal General gastrointestinal: Present: soft, non-tender, non-distended, normal bowel sounds - Neurologic Neurological: alert and oriented x3 - Labs CBC & Chem 7: 11/13/18 05:03 11/13/18 05:03 Lab Results: Laboratory Results - last 24 hr 11/12/18 11/12/18 11/12/18 16:00 16:00 19:10 WBC 5.9 RBC 2.46 L Hgb 8.3 L Hct 24.6 L MCV 100 H MCH 34 H MCHC 34 RDW 17.9 H Plt Count 199 Lymph % (Auto) 6.9 L [place] % (Auto) 9.4 H Eos % (Auto) 0.4 Baso % (Auto) 0.5 Lymph # 0.4 L [place] # 0.6 Eos # 0.0 Baso # 0.0 Seg Neutrophils % 82.8 H Seg Neutrophils # 4.9 PT INR Sodium 134 L Potassium 3.9 Chloride 97.3 L Carbon Dioxide 22 Anion Gap 19 BUN 22 H Creatinine 1.2 Estimated GFR 59 BUN/Creatinine Ratio 18 Glucose 129 H Calcium 9.0 Total Bilirubin AST ALT Alkaline Phosphatase Total Creatine Kinase CK-MB (CK-2) CK-MB (CK-2) Rel Index Troponin T NT-Pro-B Natriuret Pep Total Protein Albumin Albumin/Globulin Ratio Blood Type A POSITIVE Antibody Screen Negative Crossmatch See Detail 11/12/18 11/12/18 11/13/18 20:48 Unknown 05:03 WBC 5.8 RBC 2.74 L Hgb 9.3 L Hct 27.1 L MCV 99 H MCH 34 H MCHC 34 RDW 17.7 H Plt Count 182 Lymph % (Auto) 8.3 L [place] % (Auto) 12.2 H Eos % (Auto) 1.3 Baso % (Auto) 0.3 Lymph # 0.5 L [place] # 0.7 Eos # 0.1 Baso # 0.0 Seg Neutrophils % 77.9 H Seg Neutrophils # 4.5 PT 31.5 H INR 3.11 H Sodium Potassium Chloride Carbon Dioxide Anion Gap BUN Creatinine Estimated GFR BUN/Creatinine Ratio Glucose Calcium Total Bilirubin AST ALT Alkaline Phosphatase Total Creatine Kinase 86 CK-MB (CK-2) 3.3 CK-MB (CK-2) Rel Index 3.8 Troponin T < 0.010 NT-Pro-B Natriuret Pep 143.0 Total Protein Albumin Albumin/Globulin Ratio Blood Type Antibody Screen Crossmatch 11/13/18 11/13/18 05:03 09:30 WBC RBC Hgb Hct MCV MCH MCHC RDW Plt Count Lymph % (Auto) [place] % (Auto) Eos % (Auto) Baso % (Auto) Lymph # [place] # Eos # Baso # Seg Neutrophils % Seg Neutrophils # PT 26.2 H INR 2.46 H Sodium 135 L Potassium 4.1 Chloride 98.9 Carbon Dioxide 25 Anion Gap 15 BUN 20 Creatinine 1.0 Estimated GFR > 60 BUN/Creatinine Ratio 20 Glucose 121 H Calcium 8.9 Total Bilirubin 1.30 H AST 35 ALT 27 Alkaline Phosphatase 64 Total Creatine Kinase CK-MB (CK-2) CK-MB (CK-2) Rel Index Troponin T NT-Pro-B Natriuret Pep Total Protein 5.3 L Albumin 3.3 L Albumin/Globulin Ratio 1.7 Blood Type Antibody Screen Crossmatch Assessment and Plan 1.GI bleed/melena -INR 2.46 (3.11 on admission; coumadin on hold) -H/H 9.3/27.1- s/p 1 unit PRBCs (8.3/24.6 on admission) -continue to monitor H/H and transfuse as needed -patient reports black stool x 1 week. No hematemesis, hematochezia or active signs of bleeding today. -currently HD stable -etiology-possible ulcer vs other -EGD once INR < 2, will tentatively schedule for tomorrow (spoke to cardiology with clearance given to proceed with endoscopy) -okay to clears today then NPO after MN -INR in am -continue PPI and supportive care -will follow
[2018-11-13] MEDS ORDERED: HCTZ ONE (13:16)
[2018-11-13] MEDS ORDERED: NEURONTIN ONE (13:16)
[2018-11-13] MEDS ORDERED: THERAGRAN Tab PO ONE (13:16)
[2018-11-13] MEDS ORDERED: COZAAR ONE (13:17)
[2018-11-13] MEDS: FISH OIL PO SCH (13:20)
[2018-11-13] MEDS: HCTZ PO SCH (13:20)
[2018-11-13] MEDS: SPIRIVA IH SCH (13:20)
[2018-11-13] MEDS: COZAAR PO SCH ×2 (13:20→22:05)
[2018-11-13] MEDS: THERAGRAN Tab PO SCH (13:20)
[2018-11-13] MEDS: NEURONTIN PO SCH (13:20)
[2018-11-13] MEDS ORDERED: PROVENTIL IH ONE (13:36)
[2018-11-13] MEDS ORDERED: WATER FOR IRRIG STERILE IR ONE (15:42)
[2018-11-13] MEDS: PROTONIX 80 MG in NACL 0.9% 100 ML IV SCH (22:06)
[2018-11-14 05:34] LABS: Hemoglobin 9.7 gm/dl (11.8-15.2)
[2018-11-14 05:50] LABS: INR 1.98 (0.87-1.13)
[2018-11-14] MEDS: NACL 0.9% 1000 ML 1,000 ML IV SCH ×2 (07:49→08:32)
[2018-11-14] MEDS: PROTONIX 80 MG in NACL 0.9% 100 ML IV SCH ×2 (07:49→22:06)
[2018-11-14] MEDS ORDERED: DIPRIVAN 10 MG/ML IV ONE (08:34)
[2018-11-14] MEDS ORDERED: PROAIR IH ONE (08:50)
[2018-11-14] MEDS ORDERED: AMIDATE IV ONE (10:12)
--- NOTE | 2018-11-14 10:45 | Progress Note ---
Assessment and Plan Assessment and plan: 73 YO Male with HTN, CVA, GERD, Asthma, Nephrolithiasis, COPD, HLD, CAD S/P CABG presents to ED for evaluation. Pt states that he has experienced generalized weakness over the past week with worsening symptoms over the same time frame. Pt also reports feeling as though he was going to "pass out". Pt also reports dark tarry stools daily over the past 1 week. Pt presents to a new PCP and was found to have new onset Atrial Fib. Pt reports that he has never been informed of having Atrial Fib. Pt denies fever, chills, CP, Palpitations, NVD, Trauma, prolonged travel/immobility, individual/family history of DVT/PE/Bleeding/Blood Clotting Disorders, skin rash, hemoptysis, or known ill contacts * Pt seen and evaluated in ED and found to have Atrial Fib as well as concomitant GI Bleed complicated by symptomatic blood loss anemia. * Pt admitted to [facility] and initiated on GI bleed protocol, and treated with PRBC transfusion. * Cardiology consulted in ED. . Prior admission on 01/08/15 reviewed. All listed medication reconciled at time of admission. (1) GI bleed Current Visit: Yes Status: Acute Qualifiers: GI bleed type/associated pathology: anorectal hemorrhage Qualified Code(s): K62.5 - Hemorrhage of anus and rectum Plan to address problem: GI consulted in ED plan for Endsocpy in am, IV ppi therapy, serial cbc, PRBC transfusion. EGD was stable. Colonoscopy planned to rule out lower source. Hold coumadin (2) New onset a-fib Current Visit: Yes Status: Acute Plan to address problem: Rate currently controlled, Continue cardizem, telemetry monitoring, cardiology consulted, hold anticoagulation at this time secondary to GI bleed, (3) CVA (cerebral vascular accident) Current Visit: Yes Status: Chronic Plan to address problem: Present On Admission. (4) COPD (chronic obstructive pulmonary disease) Current Visit: Yes Status: Chronic Plan to address problem: Present on Admission., supplemental oxygen, nebulizer therapy, supportive care. (5) Asthma Current Visit: Yes Status: Acute Qualifiers: Asthma severity: mild Asthma persistence: intermittent Plan to address problem: Nebulizer therapy, supportive care, avoid asthma triggers (6) HLD (hyperlipidemia) Current Visit: Yes Status: Acute Qualifiers: Hyperlipidemia type: mixed hyperlipidemia Qualified Code(s): E78.2 - Mixed hyperlipidemia Plan to address problem: statin therapy, low cholesterol diet, (7) CAD (coronary artery disease) Current Visit: Yes Status: Chronic Qualifiers: Associated angina: without angina Plan to address problem: risk factor reduction therapy, low cholesterol diet, statin therapy, (8) Anemia Current Visit: Yes Status: Acute Qualifiers: Anemia type: other cause Qualified Code(s): D64.9 - Anemia, unspecified Plan to address problem: Symptomatic Anemia: Secondary to Blood loss: PRBC transfusion, CBC, repeat CBC in AM. (9) HTN (hypertension) Current Visit: No Status: Chronic Qualifiers: Hypertension type: essential hypertension Qualified Code(s): I10 - Essential (primary) hypertension Plan to address problem: Monitor BP q shift, continue current therapy. (10) DVT prophylaxis Current Visit: No Status: Acute Plan to address problem: SCD to BLE while in bed. History Interval history: Patient seen and examined, resting comfortably. No new complaints Hospitalist Physical - Physical exam Narrative exam: General appearance: Present: NO DISTRESS, well-nourished - EENT Eyes: Present: PERRL, EOM intact ENT: hearing intact, clear oral mucosa - Neck Neck: Present: supple, normal ROM - Respiratory Respiratory: bilateral: CTA - Cardiovascular Rhythm: irregularly irregular Heart Sounds: Present: S1 & S2. Absent: systolic murmur - Extremities Extremities: no ischemia, pulses intact, pulses symmetrical, No edema, normal temperature, normal color, Full ROM Peripheral Pulses: within normal limits - Abdominal General gastrointestinal: deferred, non-tender, non-distended, normal bowel sounds - Integumentary Integumentary: Present: clear, warm, dry - Psychiatric Psychiatric: appropriate mood/affect, intact judgment & insight, memory intact, cooperative - Neurologic Neurologic: CNII-XII intact, moves all extremities - Allied Health Allied health notes reviewed: nursing - Constitutional Vitals: Temp Pulse Resp BP Pulse Ox 98.8 F 84 18 118/68 96 11/14/18 08:29 11/14/18 08:29 11/14/18 08:29 11/14/18 08:29 11/14/18 08:29 General appearance: Present: mild distress, well-nourished Results - Labs CBC & Chem 7: 11/14/18 04:40 11/13/18 05:03 Labs: Laboratory Last Values WBC 5.8 K/mm3 (4.5-11.0) 11/13/18 05:03 RBC 2.74 M/mm3 (3.65-5.03) L 11/13/18 05:03 Hgb 9.7 gm/dl (11.8-15.2) L 11/14/18 04:40 Hct 28.0 % (35.5-45.6) L 11/14/18 04:40 MCV 99 fl (84-94) H 11/13/18 05:03 MCH 34 pg (28-32) H 11/13/18 05:03 MCHC 34 % (32-34) 11/13/18 05:03 RDW 17.7 % (13.2-15.2) H 11/13/18 05:03 Plt Count 182 K/mm3 (140-440) 11/13/18 05:03 Lymph % (Auto) 8.3 % (13.4-35.0) L 11/13/18 05:03 [place] % (Auto) 12.2 % (0.0-7.3) H 11/13/18 05:03 Eos % (Auto) 1.3 % (0.0-4.3) 11/13/18 05:03 Baso % (Auto) 0.3 % (0.0-1.8) 11/13/18 05:03 Lymph # 0.5 K/mm3 (1.2-5.4) L 11/13/18 05:03 [place] # 0.7 K/mm3 (0.0-0.8) 11/13/18 05:03 Eos # 0.1 K/mm3 (0.0-0.4) 11/13/18 05:03 Baso # 0.0 K/mm3 (0.0-0.1) 11/13/18 05:03 Seg Neutrophils % 77.9 % (40.0-70.0) H 11/13/18 05:03 Seg Neutrophils # 4.5 K/mm3 (1.8-7.7) 11/13/18 05:03 PT 22.1 Sec. (12.2-14.9) H 11/14/18 04:40 INR 1.98 (0.87-1.13) H 11/14/18 04:40 Sodium 135 mmol/L (137-145) L 11/13/18 05:03 Potassium 4.1 mmol/L (3.6-5.0) 11/13/18 05:03 Chloride 98.9 mmol/L (98-107) 11/13/18 05:03 Carbon Dioxide 25 mmol/L (22-30) 11/13/18 05:03 15 mmol/L 11/13/18 05:03 BUN 20 mg/dL (9-20) 11/13/18 05:03 1.0 mg/dL (0.8-1.5) 11/13/18 05:03 Estimated GFR > 60 ml/min 11/13/18 05:03 20 % 11/13/18 05:03 Glucose 121 mg/dL (75-100) H 11/13/18 05:03 Calcium 8.9 mg/dL (8.4-10.2) 11/13/18 05:03 1.30 mg/dL (0.1-1.2) H 11/13/18 05:03 AST 35 units/L (5-40) 11/13/18 05:03 ALT 27 units/L (7-56) 11/13/18 05:03 64 units/L (35-129) 11/13/18 05:03 86 units/L (55-170) 11/12/18 Unknown CK-MB (CK-2) 3.3 ng/mL (0.0-4.0) 11/12/18 Unknown CK-MB (CK-2) Rel Index 3.8 (0-4) 11/12/18 Unknown < 0.010 ng/mL (0.00-0.029) 11/12/18 Unknown NT-Pro-B Natriuret Pep 143.0 pg/mL (0-900) 11/12/18 Unknown 5.3 g/dL (6.3-8.2) L 11/13/18 05:03 3.3 g/dL (3.9-5) L 11/13/18 05:03 1.7 % 11/13/18 05:03 Blood Type A POSITIVE 11/12/18 19:10 Antibody Screen Negative 11/12/18 19:10 Crossmatch See Detail 11/12/18 19:10 Active Medications - Current Medications Current Medications: Generic Name Dose Route Start Last Admin Trade Name Freq PRN Reason Stop Dose Admin Acetaminophen 650 mg 11/12/18 19:35 Tylenol PO Q4H PRN Pain MILD(1-3)/Fever >100.5/URBINA Albuterol 2.5 mg 11/12/18 20:56 11/13/18 13:34 Proventil IH 2.5 mg Q6HRT PRN Administration Shortness Of Breath Atorvastatin Calcium 80 mg 11/12/18 22:00 11/13/18 22:05 Lipitor PO 80 mg QHS SHEA Administration Diltiazem HCl 180 mg 11/13/18 10:00 11/13/18 17:16 Cardizem Cd PO 180 mg DAILY SHEA Administration Fish Oil 1,000 mg 11/13/18 10:00 11/13/18 13:20 Fish Oil PO 1,000 mg DAILY SHEA Administration Gabapentin 300 mg 11/13/18 10:00 11/13/18 13:20 Neurontin PO 300 mg DAILY SHEA Administration Hydrochlorothiazide 12.5 mg 11/13/18 10:00 11/13/18 13:20 Hctz PO 12.5 mg QDAY SHEA Administration Pantoprazole Sodium 80 mg/ 100 mls @ 10 mls/hr 11/12/18 19:30 11/14/18 07:49 Sodium Chloride IV 8 mg/hr DIRECT SHEA 10 mls/hr Administration 8 MG/HR Sodium Chloride 1,000 mls @ 50 mls/hr 11/14/18 08:00 11/14/18 08:32 Nacl 0.9% 1000 Ml IV 50 mls/hr DIRECT SHEA Administration Losartan Potassium 50 mg 11/12/18 22:00 11/13/18 22:05 Cozaar PO 50 mg BID SHEA Administration Multivitamins 1 each 11/13/18 10:00 11/13/18 13:20 Theragran Tab PO 1 each DAILY SHEA Administration Ondansetron HCl 4 mg 11/12/18 19:35 Zofran IV Q8H PRN Nausea And Vomiting Sodium Chloride 10 ml 11/12/18 22:00 11/13/18 22:06 Sodium Chloride Flush Syringe 10 Ml IV Not Given BID SHEA Sodium Chloride 10 ml 11/12/18 19:35 Sodium Chloride Flush Syringe 10 Ml IV PRN PRN LINE FLUSH Tiotropium [place] 1 puff 11/13/18 10:00 11/13/18 13:20 Spiriva IH Not Given DAILY SHEA
--- NOTE | 2018-11-14 10:47 | Operative Report ---
Operative Report Operative Report: Esophagogastroduodenoscopy Procedure Note Date of procedure: 11/14/2018 Endoscopist: Arvin Lopez MD Pre-op diagnosis: melena, anemia Post-op diagnosis: hiatal hernia Anesthesia: MAC Complications: No immediate complications Estimated blood loss: None Procedure: After consent was obtained, the patient was placed in the left lateral decubitus position. The olympus endoscope was inserted into the patient's mouth under direct vision, and advanced into the 2nd portion of the duodenum without difficulty. The patient tolerated the procedure well. The views of the mucosa were good. Patient's vital signs were monitored continuously throughout the procedure. Findings: The esophagus showed a medium sized hiatal hernia. Otherwise normal. Exam of the stomach showed normal appearing gastric mucosa throughout without signs of ulcers or erosions. No signs of bleeding. The duodenum appeared normal. Impression: 1. A medium sized hiatal hernia. 2. Otherwise, normal exam without a source of bleeding. Recommendations: - Continue with PPI. - resume diet with clear liquid diet. - monitor H/H. - will plan for colonoscopy tomorrow. Prep overnight. NPO MN.
[2018-11-14] MEDS: SODIUM CHLORIDE FLUSH SYRINGE 10 ML IV SCH ×2 (10:48→22:08)
[2018-11-14] MEDS: SPIRIVA IH SCH (12:12)
--- NOTE | 2018-11-14 12:30 | Progress Note ---
Assessment and Plan Patient remains stable from a cardiac standpoint. Will hold Coumadin again for colonoscopy tomorrow. Per GI, if no cause of bleeding is identified, episodes may be attributable to the use of anticoagulant - await results from test tomorrow. Patient seen in conjunction with Dr. Cruz, who agrees with assessment and plan. - Patient Problems (1) Anemia Current Visit: Yes Status: Acute Qualifiers: Anemia type: other cause Qualified Code(s): D64.9 - Anemia, unspecified (2) Asthma Current Visit: Yes Status: Acute Qualifiers: Asthma severity: mild Asthma persistence: intermittent (3) GI bleed Current Visit: Yes Status: Acute Qualifiers: GI bleed type/associated pathology: anorectal hemorrhage Qualified Code(s): K62.5 - Hemorrhage of anus and rectum (4) Melena Current Visit: Yes Status: Acute (5) Paroxysmal atrial fibrillation Current Visit: Yes Status: Acute (6) SOB (shortness of breath) Current Visit: Yes Status: Acute (7) CAD (coronary artery disease) Current Visit: Yes Status: Chronic Qualifiers: Coronary Disease-Associated Artery/Lesion type: coronary artery bypass graft, autologous artery (8) COPD (chronic obstructive pulmonary disease) Current Visit: Yes Status: Chronic (9) HTN (hypertension) Current Visit: Yes Status: Chronic Qualifiers: Hypertension type: essential hypertension Qualified Code(s): I10 - Essential (primary) hypertension (10) History of CVA (cerebrovascular accident) Current Visit: Yes Status: Chronic (11) Hx of CABG Current Visit: Yes Status: Chronic Subjective Date of service: 11/14/18 Interval history: Patient just returned from EGD. States he feels fine. EGD negative, scheduled for colonoscopy tomorrow. SR with PACs on telemetry. Objective Last Vital Signs Temp 98.6 F 11/14/18 11:15 Pulse 85 11/14/18 12:18 Resp 16 11/14/18 12:18 BP 121/49 11/14/18 11:15 Pulse Ox 98 11/14/18 12:19 - Physical Examination General: Appears Well HEENT: Positive: PERRL, Normocephaly, Mucus Membranes Moist Neck: Positive: neck supple, trachea midline Cardiac: Positive: Reg Rate and Rhythm Lungs: Positive: Normal Exam, Decreased Breath Sounds Neuro: Positive: Grossly Intact Abdomen: Positive: Soft. Negative: Tender /Rectal: Other (Deferred) Skin: Negative: Rash, Wound Musculoskeletal: No Pain, Normal Range of Motion Extremities: Present: normal. Absent: edema - Labs and Meds Coagulation 11/14/18 Range/Units 04:40 PT 22.1 H (12.2-14.9) Sec. INR 1.98 H (0.87-1.13) CBC 11/14/18 Range/Units 04:40 Hgb 9.7 L (11.8-15.2) gm/dl Hct 28.0 L (35.5-45.6) % - Imaging and Cardiology EKG: report reviewed, image reviewed Echo: report reviewed (02/2018 showed EF 40-45%, LA mildly dilated, mild MR, mild TR. ) - Telemetry EKG Rhythm: Sinus Rhythm (with PACs) - EKG Sinus rhythms and dysrhythmias: sinus rhythm
[2018-11-14] MEDS: FISH OIL PO SCH (13:30)
[2018-11-14] MEDS: THERAGRAN Tab PO SCH (13:30)
[2018-11-14] MEDS: HCTZ PO SCH (13:30)
[2018-11-14] MEDS: NEURONTIN PO SCH (13:30)
[2018-11-14] MEDS: CARDIZEM CD PO SCH (13:31)
[2018-11-14] MEDS: COZAAR PO SCH ×2 (14:00→22:07)
[2018-11-14] MEDS ORDERED: GOLYTELY PO ONE (16:00)
[2018-11-15] MEDS: NACL 0.9% 1000 ML 1,000 ML IV SCH ×2 (06:13→08:40)
--- NOTE | 2018-11-15 08:56 | Progress Note ---
Assessment and Plan Assessment and plan: 73 YO Male with HTN, CVA, GERD, Asthma, Nephrolithiasis, COPD, HLD, CAD S/P CABG presents to ED for evaluation. Pt states that he has experienced generalized weakness over the past week with worsening symptoms over the same time frame. Pt also reports feeling as though he was going to "pass out". Pt also reports dark tarry stools daily over the past 1 week. Pt presents to a new PCP and was found to have new onset Atrial Fib. Pt reports that he has never been informed of having Atrial Fib. Pt denies fever, chills, CP, Palpitations, NVD, Trauma, prolonged travel/immobility, individual/family history of DVT/PE/Bleeding/Blood Clotting Disorders, skin rash, hemoptysis, or known ill contacts * Pt seen and evaluated in ED and found to have Atrial Fib as well as concomitant GI Bleed complicated by symptomatic blood loss anemia. * Pt admitted to [facility] and initiated on GI bleed protocol, and treated with PRBC transfusion. * Cardiology consulted in ED. . Prior admission on 01/08/15 reviewed. All listed medication reconciled at time of admission. * Endoscopy-egd Impression:1. A medium sized hiatal hernia. 2. Otherwise, normal exam without a source of bleeding. Recommendations:- Continue with PPI. - will plan for colonoscopy tomorrow. Prep overnight. NPO MN. (1) GI bleed Current Visit: Yes Status: Acute Qualifiers: GI bleed type/associated pathology: anorectal hemorrhage Qualified Code(s): K62.5 - Hemorrhage of anus and rectum Plan to address problem: GI consulted in ED plan for Endsocpy in am, IV ppi therapy, serial cbc, PRBC transfusion. EGD was stable. Colonoscopy planned to rule out lower source. Hold coumadin (2) New onset a-fib Current Visit: Yes Status: Acute Plan to address problem: Rate currently controlled, Continue cardizem, telemetry monitoring, cardiology consulted, hold anticoagulation at this time secondary to GI bleed, (3) CVA (cerebral vascular accident) Current Visit: Yes Status: Chronic Plan to address problem: Present On Admission. (4) COPD (chronic obstructive pulmonary disease) Current Visit: Yes Status: Chronic Plan to address problem: Present on Admission., supplemental oxygen, nebulizer therapy, supportive care. (5) Asthma Current Visit: Yes Status: Acute Qualifiers: Asthma severity: mild Asthma persistence: intermittent Plan to address problem: Nebulizer therapy, supportive care, avoid asthma triggers (6) HLD (hyperlipidemia) Current Visit: Yes Status: Acute Qualifiers: Hyperlipidemia type: mixed hyperlipidemia Qualified Code(s): E78.2 - Mixed hyperlipidemia Plan to address problem: statin therapy, low cholesterol diet, (7) CAD (coronary artery disease) Current Visit: Yes Status: Chronic Qualifiers: Associated angina: without angina Plan to address problem: risk factor reduction therapy, low cholesterol diet, statin therapy, (8) Anemia Current Visit: Yes Status: Acute Qualifiers: Anemia type: other cause Qualified Code(s): D64.9 - Anemia, unspecified Plan to address problem: Symptomatic Anemia: Secondary to Blood loss: PRBC transfusion, CBC, repeat CBC in AM. (9) HTN (hypertension) Current Visit: No Status: Chronic Qualifiers: Hypertension type: essential hypertension Qualified Code(s): I10 - Essential (primary) hypertension Plan to address problem: Monitor BP q shift, continue current therapy. (10) DVT prophylaxis Current Visit: No Status: Acute Plan to address problem: SCD to BLE while in bed. Hospitalist Physical - Constitutional Vitals: Temp Pulse Resp BP Pulse Ox 98.1 F 73 14 128/62 96 11/15/18 08:38 11/15/18 08:38 11/15/18 08:38 11/15/18 08:38 11/15/18 08:38 General appearance: Present: mild distress, well-nourished Results - Labs CBC & Chem 7: 11/14/18 04:40 11/13/18 05:03 Labs: Laboratory Last Values WBC 5.8 K/mm3 (4.5-11.0) 11/13/18 05:03 RBC 2.74 M/mm3 (3.65-5.03) L 11/13/18 05:03 Hgb 9.7 gm/dl (11.8-15.2) L 11/14/18 04:40 Hct 28.0 % (35.5-45.6) L 11/14/18 04:40 MCV 99 fl (84-94) H 11/13/18 05:03 MCH 34 pg (28-32) H 11/13/18 05:03 MCHC 34 % (32-34) 11/13/18 05:03 RDW 17.7 % (13.2-15.2) H 11/13/18 05:03 Plt Count 182 K/mm3 (140-440) 11/13/18 05:03 Lymph % (Auto) 8.3 % (13.4-35.0) L 11/13/18 05:03 [place] % (Auto) 12.2 % (0.0-7.3) H 11/13/18 05:03 Eos % (Auto) 1.3 % (0.0-4.3) 11/13/18 05:03 Baso % (Auto) 0.3 % (0.0-1.8) 11/13/18 05:03 Lymph # 0.5 K/mm3 (1.2-5.4) L 11/13/18 05:03 [place] # 0.7 K/mm3 (0.0-0.8) 11/13/18 05:03 Eos # 0.1 K/mm3 (0.0-0.4) 11/13/18 05:03 Baso # 0.0 K/mm3 (0.0-0.1) 11/13/18 05:03 Seg Neutrophils % 77.9 % (40.0-70.0) H 11/13/18 05:03 Seg Neutrophils # 4.5 K/mm3 (1.8-7.7) 11/13/18 05:03 PT 22.1 Sec. (12.2-14.9) H 11/14/18 04:40 INR 1.98 (0.87-1.13) H 11/14/18 04:40 Sodium 135 mmol/L (137-145) L 11/13/18 05:03 Potassium 4.1 mmol/L (3.6-5.0) 11/13/18 05:03 Chloride 98.9 mmol/L (98-107) 11/13/18 05:03 Carbon Dioxide 25 mmol/L (22-30) 11/13/18 05:03 15 mmol/L 11/13/18 05:03 BUN 20 mg/dL (9-20) 11/13/18 05:03 1.0 mg/dL (0.8-1.5) 11/13/18 05:03 Estimated GFR > 60 ml/min 11/13/18 05:03 20 % 11/13/18 05:03 Glucose 121 mg/dL (75-100) H 11/13/18 05:03 Calcium 8.9 mg/dL (8.4-10.2) 11/13/18 05:03 1.30 mg/dL (0.1-1.2) H 11/13/18 05:03 AST 35 units/L (5-40) 11/13/18 05:03 ALT 27 units/L (7-56) 11/13/18 05:03 64 units/L (35-129) 11/13/18 05:03 86 units/L (55-170) 11/12/18 Unknown CK-MB (CK-2) 3.3 ng/mL (0.0-4.0) 11/12/18 Unknown CK-MB (CK-2) Rel Index 3.8 (0-4) 11/12/18 Unknown < 0.010 ng/mL (0.00-0.029) 11/12/18 Unknown NT-Pro-B Natriuret Pep 143.0 pg/mL (0-900) 11/12/18 Unknown 5.3 g/dL (6.3-8.2) L 11/13/18 05:03 3.3 g/dL (3.9-5) L 11/13/18 05:03 1.7 % 11/13/18 05:03 Blood Type A POSITIVE 11/12/18 19:10 Antibody Screen Negative 11/12/18 19:10 Crossmatch See Detail 11/12/18 19:10 Active Medications - Current Medications Current Medications: Generic Name Dose Route Start Last Admin Trade Name Freq PRN Reason Stop Dose Admin Acetaminophen 650 mg 11/12/18 19:35 Tylenol PO Q4H PRN Pain MILD(1-3)/Fever >100.5/URBINA Albuterol 2.5 mg 11/12/18 20:56 11/13/18 13:34 Proventil IH 2.5 mg Q6HRT PRN Administration Shortness Of Breath Atorvastatin Calcium 80 mg 11/12/18 22:00 11/14/18 22:07 Lipitor PO 80 mg QHS SHEA Administration Diltiazem HCl 180 mg 11/13/18 10:00 11/14/18 13:31 Cardizem Cd PO 180 mg DAILY SHEA Administration Fish Oil 1,000 mg 11/13/18 10:00 11/14/18 13:30 Fish Oil PO 1,000 mg DAILY SHEA Administration Gabapentin 300 mg 11/13/18 10:00 11/14/18 13:30 Neurontin PO 300 mg DAILY SHEA Administration Hydrochlorothiazide 12.5 mg 11/13/18 10:00 11/14/18 13:30 Hctz PO 12.5 mg QDAY SHEA Administration Pantoprazole Sodium 80 mg/ 100 mls @ 10 mls/hr 11/12/18 19:30 11/14/18 22:06 Sodium Chloride IV 8 mg/hr DIRECT SHEA 10 mls/hr Administration 8 MG/HR Sodium Chloride 1,000 mls @ 50 mls/hr 11/14/18 08:00 11/15/18 08:40 Nacl 0.9% 1000 Ml IV 50 mls/hr DIRECT SHEA Administration Losartan Potassium 50 mg 11/12/18 22:00 11/14/18 22:07 Cozaar PO 50 mg BID SHEA Administration Multivitamins 1 each 11/13/18 10:00 11/14/18 13:30 Theragran Tab PO 1 each DAILY SHEA Administration Ondansetron HCl 4 mg 11/12/18 19:35 Zofran IV Q8H PRN Nausea And Vomiting Sodium Chloride 10 ml 11/12/18 22:00 11/14/18 22:08 Sodium Chloride Flush Syringe 10 Ml IV 10 ml BID SHEA Administration Sodium Chloride 10 ml 11/12/18 19:35 Sodium Chloride Flush Syringe 10 Ml IV PRN PRN LINE FLUSH Tiotropium [place] 1 puff 11/13/18 10:00 11/14/18 12:12 Spiriva IH 1 puff DAILY SHEA Administration
[2018-11-15] MEDS ORDERED: DIPRIVAN 10 MG/ML IV ONE ×2 (09:02)
--- NOTE | 2018-11-15 09:09 | Anesthesia Consultation ---
Anesthesia Consult and Med Hx Date of service: 11/15/18 - Airway Anesthetic Teeth Evaluation: Good ROM Head & Neck: Adequate Mallampati Class: Class II Intubation Access Assessment: Good - Pulmonary Exam CTA: Yes - Cardiac Exam Anesthetic Concerns: S1S2 irregular - Pre-Operative Health Status ASA Pre-Surgery Classification: ASA3 Proposed Anesthetic Plan: MAC - Pulmonary Hx Asthma: Yes COPD: Yes - Cardiovascular System Hx Hypertension: Yes Hx Cardia Arrhythmia: Yes - Central Nervous System CVA: Yes Hx Psychiatric Problems: No
[2018-11-15] MEDS ORDERED: NACL 0.9% 100 ML ONE (09:15)
[2018-11-15] MEDS ORDERED: XYLOCAINE 2% INFILTRATI ONE (09:15)
[2018-11-15] MEDS ORDERED: VERSED ONE (09:16)
--- NOTE | 2018-11-15 09:58 | Discharge Summary ---
Providers - Providers Date of Admission: 11/12/18 19:35 Attending physician: JEMIMA ROBERSON MD 11/12/18 18:41 Consult to Physician [CONS] Routine Comment: Consulting Provider: PIO GATES Physician Instructions: Reason For Exam: new afib Primary care physician: CARISSA ZELAYA Hospitalization Reason for admission: GI bleed Condition: Critical Hospital course: 73 YO Male with HTN, CVA, GERD, Asthma, Nephrolithiasis, COPD, HLD, CAD S/P CABG presents to ED for evaluation. Pt states that he has experienced generalized weakness over the past week with worsening symptoms over the same time frame. Pt also reports feeling as though he was going to "pass out". Pt also reports dark tarry stools daily over the past 1 week. Pt presents to a new PCP and was found to have new onset Atrial Fib. Pt reports that he has never been informed of having Atrial Fib. Pt denies fever, chills, CP, Palpitations, NVD, Trauma, prolonged travel/immobility, individual/family history of DVT/PE/Bleeding/Blood Clotting Disorders, skin rash, hemoptysis, or known ill contacts * Pt seen and evaluated in ED and found to have Atrial Fib as well as concomitant GI Bleed complicated by symptomatic blood loss anemia. * Pt admitted to IMCU and initiated on GI bleed protocol, and treated with PRBC transfusion. * Cardiology consulted in ED. . Prior admission on 01/08/15 reviewed. All listed medication reconciled at time of admission. * Endoscopy-egd Impression:1. A medium sized hiatal hernia. 2. Otherwise, normal exam without a source of bleeding. Recommendations:- Continue with PPI. * Colonoscopy done and multiple polyps noted, recommended repeat colonoscopy outpatient for polpectomy * H/H remained stable, patient to resume Coumadin at previous dose. * counselling on medications and disease process discussed in detail (1) GI bleed (2) New onset a-fib (3) CVA (cerebral vascular accident) (4) COPD (chronic obstructive pulmonary disease) (5) Asthma (6) HLD (hyperlipidemia) (7) CAD (coronary artery disease) (8) Anemia (9) HTN (hypertension) (10) Hiatal Hernia. Disposition: - TO HOME OR SELFCARE Time spent for discharge: 35 mins Core Measure Documentation - Palliative Care Palliative Care/ Comfort Measures: Not Applicable - Core Measures Any of the following diagnoses?: none Exam - Physical Exam Narrative exam: General appearance: Present: NO DISTRESS, well-nourished - EENT Eyes: Present: PERRL, EOM intact ENT: hearing intact, clear oral mucosa - Neck Neck: Present: supple, normal ROM - Respiratory Respiratory: bilateral: CTA - Cardiovascular Rhythm: irregularly irregular Heart Sounds: Present: S1 & S2. Absent: systolic murmur - Extremities Extremities: no ischemia, pulses intact, pulses symmetrical, No edema, normal temperature, normal color, Full ROM Peripheral Pulses: within normal limits - Abdominal General gastrointestinal: deferred, non-tender, non-distended, normal bowel sounds - Integumentary Integumentary: Present: clear, warm, dry - Psychiatric Psychiatric: appropriate mood/affect, intact judgment & insight, memory intact, cooperative - Neurologic Neurologic: CNII-XII intact, moves all extremities - Allied Health Allied health notes reviewed: nursing - Constitutional Vitals: Temp Pulse Resp BP Pulse Ox 98.1 F 73 14 128/62 96 11/15/18 08:38 11/15/18 08:38 11/15/18 08:38 11/15/18 08:38 11/15/18 08:38 Plan Activity: advance as tolerated, fall precautions Diet: low fat Special Instructions: record daily BP diary Additional Instructions: MONITOR INR. RESUME HOME DOSE COUMADIN IF OK WITH STUDENT SUPPORT ADVISOR [facility] ELIZABETH [Referring] - 3-5 Days CARLOS MUHAMMAD MD [Staff Physician] - 7 Days KEYONA ROSENTHAL MD [Staff Physician] - 7 Days Prescriptions: Pantoprazole [Protonix TAB] 40 mg PO QDAY #30 tablet
[2018-11-15] MEDS ORDERED: WATER FOR IRRIG STERILE IR ONE (10:10)
[2018-11-15] MEDS ORDERED: WATER FOR IRRIG STERILE ONE (10:10)
--- NOTE | 2018-11-15 10:15 | Anesthesia Day of Surgery ---
Anesthesia Day of Surgery - Day of Surgery Patient Examined: Yes Patient H&P Reviewed: Yes Patient is NPO: Yes
--- NOTE | 2018-11-15 10:33 | Operative Report ---
Operative Report Operative Report: Date of procedure: 11/15/2018 Procedure: Colonoscopy. Attending physician: Arvin Lopez MD Indication: hematochezia, anemia Consent: Informed consent was obtained after advising the patient and family regarding nature of this procedure, its indications, potential benefits as well as possible complications including but not limited to bleeding perforation and adverse reaction to medication, infection as well as other cardiopulmonary complications. An informed written and verbal consent was then obtained after due opportunity was provided for questions and answers. Monitoring: Patient was monitored continuously with pulse oximetry and electrocardiographic recordings as well as blood pressure recordings. Vital signs remained stable throughout this procedure with no untoward events. Instrument: Olympus video colonoscope Medications: Propofol given intravenously in divided doses. For details please refer to anesthesia records. Description of procedure: Patient was placed in the left lateral decubitus position after achieving sedation, a digital rectal examination was performed following which the colonoscope was introduced into the anal verge and advanced to the cecum which was identified by the cecal valve, the appendiceal orifice, as well as by the cecal strap and direct transillumination. The colonoscope was subsequently withdrawn with careful inspection of all mucosal surfaces. Patient tolerated this procedure well and was subsequently taken to the recovery room. The colon prep quality was fair. The following findings were noted. Findings: 1. No gross blood or sites of active bleeding noted throughout the colon. 2. Multiple colon polyps throughout the colon noted, mainly 4 polyps of ~2 cm in size sessile polyps in the transverse colon noted. Other small sessile polyps ~6-8 mm in size in the ascending and descending colon noted. Polypectomy not per formed due to fair prep quality and INR of 1.98 with recent coumadin use. 3. Mild diverticulosis in the left colon. 4. Moderate size internal hemorrhoids seen on retroflexion view. Impression: 1. No gross blood or site of active bleeding found throughout the colon. The bleeding may have been due to possible diverticular bleed or from hemorrhoids that had stopped. 2. Multiple small and large size colon polyps throughout the colon. Polypectomy not performed due to fair prep quality and elevated INR with recent coumadin use. 3. Mild left sided diverticulosis. 4. Moderate size internal hemorrhoids seen on retroflexion view. Plan: High-fiber diet. Resume diet. Resume coumadin Ok for discharge per GI standpoint. Follow up outpatient for repeat colonoscopy outpatient with coumadin off for 5 days. Likely needs EMR for the large colon polyps. This was stressed to the patient and the family to follow up for repeat colonoscopy.
[2018-11-15] MEDS: SPIRIVA IH SCH (11:39)
--- NOTE | 2018-11-15 12:15 | Progress Note ---
Assessment and Plan Patient stable for discharge from a cardiac standpoint. Recommend starting at home dose (5 mg alternated with 2.5 mg two days/week) and calling Coumadin clinic for f/u adjustment and INR checks after discharge. Patient seen in conjunction with Dr. Cruz, who agrees with assessment and plan. - Patient Problems (1) Anemia Current Visit: Yes Status: Acute Qualifiers: Anemia type: other cause (2) Asthma Current Visit: Yes Status: Acute Qualifiers: Asthma severity: mild Asthma persistence: intermittent (3) GI bleed Current Visit: Yes Status: Acute Qualifiers: GI bleed type/associated pathology: anorectal hemorrhage Qualified Code(s): K62.5 - Hemorrhage of anus and rectum (4) Melena Current Visit: Yes Status: Acute (5) Paroxysmal atrial fibrillation Current Visit: Yes Status: Acute (6) SOB (shortness of breath) Current Visit: Yes Status: Acute (7) CAD (coronary artery disease) Current Visit: Yes Status: Chronic Qualifiers: Coronary Disease-Associated Artery/Lesion type: coronary artery bypass graft, autologous artery (8) COPD (chronic obstructive pulmonary disease) Current Visit: Yes Status: Chronic (9) HTN (hypertension) Current Visit: Yes Status: Chronic Qualifiers: Hypertension type: essential hypertension Qualified Code(s): I10 - Essential (primary) hypertension (10) History of CVA (cerebrovascular accident) Current Visit: Yes Status: Chronic (11) Hx of CABG Current Visit: Yes Status: Chronic Subjective Date of service: 11/15/18 Interval history: Patient s/p colonoscopy. No complaints. Per GI, no active bleeding. Earlier episodes may be d/t diverticular bleed or hemorrhoids. SR/SB with rates dropping into 40s overnight on telemetry. Occasional sinus arrhythmia noted as well. Objective Last Vital Signs Temp 98.2 F 11/15/18 09:51 Pulse 74 11/15/18 10:21 Resp 20 11/15/18 10:21 BP 123/50 11/15/18 10:21 Pulse Ox 99 11/15/18 10:21 - Physical Examination General: Appears Well HEENT: Positive: PERRL, Normocephaly, Mucus Membranes Moist Neck: Positive: neck supple, trachea midline Cardiac: Positive: Reg Rate and Rhythm Lungs: Positive: Decreased Breath Sounds Neuro: Positive: Grossly Intact Abdomen: Positive: Unremarkable, Soft. Negative: Tender /Rectal: Other (Deferred) Skin: Positive: Clear. Negative: Rash, Wound Musculoskeletal: No Pain, Normal Range of Motion Extremities: Present: normal. Absent: edema - Imaging and Cardiology EKG: report reviewed, image reviewed Echo: report reviewed (02/2018 showed EF 40-45%, LA mildly dilated, mild MR, mild TR. ) - EKG Sinus rhythms and dysrhythmias: sinus rhythm
[2018-11-15 12:22] VITALS: BP 125/57
[2018-11-15] MEDS: COZAAR PO SCH (12:22)
[2018-11-15] MEDS: FISH OIL PO SCH (12:22)
[2018-11-15] MEDS: NEURONTIN PO SCH (12:23)
[2018-11-15] MEDS: HCTZ PO SCH (12:23)
[2018-11-15] MEDS: CARDIZEM CD PO SCH (12:23)
[2018-11-15] MEDS ORDERED: COUMADIN PO SCH (17:00)
== END 2018-11-15 14:20 | disposition home or self-care (01) | DRG 378 ==
LOC: ED 15:33 → IMCU 19:35 → 4A 11-13 11:22
PROVIDERS: ADMIT Internal Medicine; ATTEND Internal Medicine
PROC: 30233N1 Transfusion of Nonautologous Red Blood Cells into Peripheral Vein, Percutaneous Approach (ICD-10-PCS; 2018-11-12)
PROC: 0DJ08ZZ Inspection of Upper Intestinal Tract, Via Natural or Artificial Opening Endoscopic (ICD-10-PCS; principal; 2018-11-14)
PROC: 0DJD8ZZ Inspection of Lower Intestinal Tract, Via Natural or Artificial Opening Endoscopic (ICD-10-PCS; 2018-11-15)
DX: K57.31 Diverticulosis of large intestine without perforation or abscess with bleeding (principal); D62 Acute posthemorrhagic anemia; K64.8 Other hemorrhoids; J44.9 Chronic obstructive pulmonary disease, unspecified; K63.5 Polyp of colon; I25.10 Atherosclerotic heart disease of native coronary artery without angina pectoris; D64.9 Anemia, unspecified; I10 Essential (primary) hypertension; K21.9 Gastro-esophageal reflux disease without esophagitis; K44.9 Diaphragmatic hernia without obstruction or gangrene; E78.5 Hyperlipidemia, unspecified; I48.0 Paroxysmal atrial fibrillation; Z90.49 Acquired absence of other specified parts of digestive tract; Z86.73 Personal history of transient ischemic attack (TIA), and cerebral infarction without residual deficits; Z95.1 Presence of aortocoronary bypass graft; Z98.49 Cataract extraction status, unspecified eye; Z82.49 Family history of ischemic heart disease and other diseases of the circulatory system; Z88.2 Allergy status to sulfonamides; Z79.899 Other long term (current) drug therapy; Z87.442 Personal history of urinary calculi
CPT/HCPCS: 36415; 36430; 71045; 80048; 80053; 82550; 82553; 83880; 84484; 85014; 85018; 85025; 85610; 86850; 86900; 86901; 86920; 93005; 93010; 94640; 94760; G0378; A9270-GY; C9113; J1170; J2250; J2704; J7030; J7040; P9016